=== PATIENT | female | born 2000 | race Caucasian/White ===

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

== ENCOUNTER 2021-03-23 19:27 | Inpatient (IN) ==
[2021-03-23] MEDS ORDERED: OXYTOCIN 30 UNITS/500 ML BAG IV PRN ×2 (20:04→20:05)
--- NOTE | 2021-03-23 20:44 | History & Physical Report ---
Date of Service March 23, 2021 Assessment & Plan (1) Supervision of normal first : Plan: 21-year-old at 39 weeks 0 days gestational age presents for induction of labor. Mcneal bulb was placed and patient ruptured during placement. Will start oxytocin per regular protocol. GBS negative. Vitals normal. otherwise uncomplicated. Admission and Anticipated Discharge Date Admission Date: March 23, 2021 History of Present Illness Primary Care Provider: Fern Echevarria DO Daniels is a 21-year-old the currently at 39 weeks 0 days gestational age. Patient presents for Mcneal placement for induction of labor tomorrow. Patient's water was instantly ruptured during fully placement. Discussed recommendation that she stay to start induction this evening which patient was agreeable to. Allergies Allergy/AdvReac Type Severity Reaction Status Date / Time nickel Allergy Unknown unknown Verified 03/23/21 13:27 Patient History Medical History (Updated 11/11/20 @ 11:39 by Shnael Guzman MD, FACOG) Mitral valve prolapse Surgical History (Updated 08/06/20 @ 13:16 by June Zarate) No history of previous surgery Family History (Updated 08/06/20 @ 13:16 by June Zarate) Grandmother (Maternal) Mitral valve prolapse Denies family history of Ovarian cancer Breast cancer Colorectal cancer Social History (Updated 08/06/20 @ 13:17 by June Zarate) Smoking Status: Never smoker Hx Alcohol Use: No Hx Substance Use: No Preferred Language: Bulgarian marital status: Single marital status details: dago Edmondsn (24) [phone] Current Living Situation: Other Current Living Situation Comment: lives with sister, dog current occupational status: employed 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
[2021-03-23 20:48] LABS: Hematocrit (blood only) 35.4 % (37-47); Mean Corpuscular Hemoglobin 30.2 pg (25-34); Mean Corpuscular Hgb Conc 33.9 g/dL (32-36); Mean Corpuscular Volume 89.2 fL (80-100); Mean Platelet Volume 10.4 fL (7.4-10.4); Platelet Count 287 K/uL (130-400); RDW Coefficient of Variation 13.7 % (11.5-14.5); RDW Standard Deviation 44.7 fL (36.4-46.3); Red Blood Count 3.97 M/uL (4.2-5.4); White Blood Count 10.66 K/uL (4.8-10.8)
[2021-03-23] MEDS: LACTATED RINGER'S 1,000 ML IV PRN (22:30)
[2021-03-24] MEDS ORDERED: fentaNYL citrate 100 MCG/2 ML VIAL ONE ×2 (01:43→10:13)
[2021-03-24] MEDS ORDERED: SODIUM CHLORIDE 0.9% INJ 10 ML VIAL ONE (01:43)
[2021-03-24] MEDS ORDERED: ePHEDrine sulfate 50 MG/ML AMP ONE ×2 (01:43→10:13)
[2021-03-24] MEDS ORDERED: BUPIVACAINE 0.25% 30 ML VIAL ONE (01:43)
[2021-03-24] MEDS ORDERED: fentaNYL 2MCG/ML ROPIVACAINE 1.25MG/ML 100 ML BAG EPI ONE (01:44)
[2021-03-24] MEDS ORDERED: diphenhydrAMINE 50 MG/ML VIAL IV PRN ×2 (02:11→10:56)
[2021-03-24] MEDS ORDERED: NALOXONE HCL 0.4 MG/1 ML VIAL/CARP IV PRN (02:11)
[2021-03-24] MEDS ORDERED: fentaNYL 2MCG/ML ROPIVACAINE 1.25MG/ML 100 ML BAG EPI PRN (02:11)
[2021-03-24] MEDS ORDERED: NALBUPHINE HCL INJ 10 MG/ML AMP IV PRN (02:11)
[2021-03-24] MEDS ORDERED: NALOXONE HCL 1 MG in SODIUM CHLORIDE 0.9% 1000ML 1,000 ML IV PRN (02:11)
[2021-03-24] MEDS ORDERED: ePHEDrine sulfate 50 MG/ML AMP IV PRN (02:11)
[2021-03-24] MEDS ORDERED: ONDANSETRON INJ 2 MG/ML 2 ML VIAL IV PRN ×2 (02:11→10:56)
--- NOTE | 2021-03-24 02:14 | Anesthesiology Consultation ---
Date of Service March 24, 2021 Assessment & Plan Chart Review Chart Review: Patient NOT seen in Pre Admission Testing and Acceptable Risk for Labor Epidural Consults Requested none ASA ASA2 Proposed Anesthesia Anesthesia Type: Labor Epidural and CSE Risk / Benefits Reviewed With: PT / POA / Parent / Guardian, Accepts Plan and Informed Consent Obtained History Height/Weight Height: 5 ft 3 in Weight: 169 kg Allergies Allergy/AdvReac Type Severity Reaction Status Date / Time nickel Allergy Unknown unknown Verified 03/23/21 13:27 Medications Active Medications Generic Name Dose Route Start Last Admin Trade Name Freq PRN Reason Stop Dose Admin Oxytocin 30 units in 500 mls @ 8 mls/hr 03/23/21 20:05 03/24/21 01:03 Pitocin IV 03/25/21 20:04 0.48 units/hr .Q24H PRN 8 mls/hr Labor Induction/Augmentation Titration Protocol 0.48 UNITS/HR Lactated Ringer's 1,000 mls @ 125 mls/hr 03/23/21 20:04 03/23/21 22:30 Lr IV 03/25/21 20:03 125 mls/hr .Q8H PRN Administration L&D Protocol Protocol NPO Date Last Intake of Fluids: 03/24/21 Time Last Intake of Fluids: 01:00 Date Last Intake of Solids: 03/23/21 Time Last Intake of Solids: 18:00 Past Medical History Medical History Mitral valve prolapse Exercise / Class Metabolic Activity II 4-5 Yardwork/Stairs/Walk up hill Past Family History Family History Grandmother (Maternal) Mitral valve prolapse Denies family history of Ovarian cancer Breast cancer Colorectal cancer Past Surgical History Surgical History No history of previous surgery Past Anesthesia History No Hx of Anesthesia Complications and No Family Hx of Anesthesia Complications History of PONV No Hx of PONV and No Hx of Motion Sickness Social History Smoking Status: Never smoker Hx Alcohol Use: No Hx Substance Use: No Review of Systems no chest pain or sob Physical Exam Vital Signs Last Vital Signs Temp 36.6 C 03/24/21 00:01 Pulse 83 03/24/21 02:08 Resp 18 03/24/21 00:01 BP 130/81 03/24/21 01:36 Pulse Ox 100 03/24/21 02:08 ENMT Mouth: no TMJ abnormality Thyromental Distance: > or= 3.5 Finger Breadths Mallampati Class: II Neck normal visual inspection Respiratory normal respiratory effort Auscultation: lungs clear to auscultation bilaterally Cardiovascular Rate/Rhythm: regular rate and regular rhythm Musculoskeletal Spine: normal cervical ROM Neurologic moves all extremities Psychiatric Orientation: alert and oriented x 3 Testing Laboratory Results 03/23/21 20:35
[2021-03-24] MEDS: LACTATED RINGER'S 1,000 ML IV PRN ×3 (02:16→09:38)
--- NOTE | 2021-03-24 06:46 | Labor Progress Brief Note ---
Date of Service March 24, 2021 Subjective Reason For Note: Routine Evaluation and Monitor Concern Presented to evaluate for recurrent decels late vs early. Assessment & Plan (1) Supervision of normal first : Plan: 21yo at 39.0 weeks GA. eIOL 1. Fetus: Current cat 1. Was cat 2 prior to IUPC placement however variability has improved and occasional decels at present (mix of late and early). Will hold off restarting Pitocin until a well established Cat 1 tracing is noted. 2. Labor: currently 5cm unchanged since 3am. However Pitocin has been off for significant portions of time since then and was making good progress prior. 3. Vitals: WNL Admission and Anticipated Discharge Date Admission Date: March 23, 2021 Physical Exam Genitourinary: Manual OB Exam: + cervical dilation 5 cm, + cervical effacement 80%, + station -2 and + amniotic fluid clear OB Exam Monitor Tracing: + external FHT monitor used, + intra-uterine pressure catheter used, + category I and + normal FHT variability; no early decelerations present, no late decelerations present and no variable decelerations IUPC placed. Results & Data ([facility]) Vital Signs (Past 12 Hours) Vital Signs Temp Pulse Resp BP Pulse Ox 03/24/21 06:38 37.4 C 134 H 18 98 03/24/21 06:33 106 H 99 03/24/21 06:30 101 H 92/50 L 03/24/21 06:28 92 H 96 03/24/21 06:23 81 96 03/24/21 06:18 88 97 03/24/21 06:15 100 H 99/57 L 03/24/21 06:13 87 96 03/24/21 06:08 88 96 03/24/21 06:03 87 96 03/24/21 06:00 91 H 101/58 L 03/24/21 05:58 80 97 03/24/21 05:53 80 99 03/24/21 05:48 74 99 03/24/21 05:47 85 104/55 L 03/24/21 05:43 83 100 03/24/21 05:38 79 99 03/24/21 05:33 73 99 03/24/21 05:30 75 105/56 L 03/24/21 05:28 70 100 03/24/21 05:23 103 H 99 03/24/21 05:18 85 98 03/24/21 05:16 100 H 125/73 03/24/21 05:13 101 H 99 03/24/21 05:10 18 03/24/21 05:08 93 H 96 03/24/21 05:03 67 97 03/24/21 05:00 91 H 108/67 03/24/21 04:58 85 95 03/24/21 04:53 74 97 03/24/21 04:48 105 H 94 03/24/21 04:47 100 H 113/74 03/24/21 04:43 106 H 98 03/24/21 04:38 73 97 03/24/21 04:33 37.2 C 119 H 18 98 03/24/21 04:32 107 H 120/62 03/24/21 04:31 100 H 92 03/24/21 04:30 18 03/24/21 04:28 94 H 98 03/24/21 04:26 93 H 90 03/24/21 04:23 97 H 97 03/24/21 04:18 72 97 03/24/21 04:15 88 102/61 03/24/21 04:13 79 97 03/24/21 04:08 86 98 03/24/21 04:03 93 H 97 03/24/21 04:02 75 107/64 03/24/21 03:58 82 98 03/24/21 03:53 96 H 98 03/24/21 03:48 81 97 03/24/21 03:47 105 H 119/67 93 03/24/21 03:43 84 97 03/24/21 03:38 94 H 97 03/24/21 03:33 100 H 98 03/24/21 03:31 69 107/62 03/24/21 03:28 101 H 97 03/24/21 03:23 105 H 96 03/24/21 03:18 96 H 97 03/24/21 03:16 81 112/62 03/24/21 03:13 94 H 97 03/24/21 03:08 84 96 03/24/21 03:03 103 H 97 03/24/21 02:59 83 109/59 L 03/24/21 02:58 76 96 03/24/21 02:57 88 110/56 L 03/24/21 02:55 106 H 123/67 03/24/21 02:53 86 132/64 97 03/24/21 02:51 78 122/65 03/24/21 02:49 74 116/61 03/24/21 02:48 85 97 03/24/21 02:47 102 H 124/68 03/24/21 02:45 18 03/24/21 02:43 115 H 99 03/24/21 02:40 117 H 18 118/53 L 03/24/21 02:38 122 H 98 03/24/21 02:37 129 H 133/74 03/24/21 02:36 77 126/82 03/24/21 02:35 97 H 18 122/76 03/24/21 02:33 98 H 120/69 95 03/24/21 02:31 91 H 125/80 03/24/21 02:30 18 03/24/21 02:29 100 H 134/75 03/24/21 02:28 116 H 97 03/24/21 02:27 103 H 135/80 03/24/21 02:25 18 03/24/21 02:24 36.6 C 03/24/21 02:23 90 98 03/24/21 02:20 18 03/24/21 02:18 114 H 96 03/24/21 02:13 82 98 03/24/21 02:08 83 100 03/24/21 02:03 75 99 03/24/21 01:58 77 99 03/24/21 01:53 83 99 03/24/21 01:36 86 130/81 03/24/21 00:37 77 101/55 L 03/24/21 00:01 36.6 C 18 03/23/21 23:45 80 117/69 03/23/21 23:36 78 126/74 03/23/21 22:01 36.8 C 18 03/23/21 20:00 37.0 C 18 03/23/21 19:40 37.0 C 18 03/23/21 19:34 115 H 125/80 Coding Level of Care Code None Diagnoses Supervision of normal first Z34.00
--- NOTE | 2021-03-24 07:46 | Labor Progress Brief Note ---
Date of Service March 24, 2021 Subjective comfortable with epidural. tried Assessment & Plan (1) Encounter for induction of labor: Plan: Fetus overall reassuring with occasional late responsive to position change. U nfortunately has not made any change in several hours. Contractions not adequate. May not be able to add back pitocin as at times, baby is not tolerating her own contractions. Explained the situation to the patient and her so who express understanding of the situation. Currently fetus is category one. Admission and Anticipated Discharge Date Admission Date: March 23, 2021 Physical Exam Physical Exam: cx--/-[address] toco--q2-5min, not adequate efm--130s with mod variabiltiy, small accels, occasional late decel responsive to position change Results & Data ([facility]) Vital Signs (Past 12 Hours) Vital Signs Temp Pulse Resp BP Pulse Ox 03/24/21 07:38 90 96 03/24/21 07:33 91 H 98 03/24/21 07:31 73 118/69 03/24/21 07:28 94 H 98 03/24/21 07:23 117 H 96 03/24/21 07:18 117 H 95 03/24/21 07:16 120 H 114/60 03/24/21 07:13 86 97 03/24/21 07:12 37.5 C 124 H 18 03/24/21 07:08 71 97 03/24/21 07:03 117 H 97 03/24/21 07:01 71 129/69 03/24/21 06:58 83 97 03/24/21 06:53 93 H 98 03/24/21 06:48 134 H 97 03/24/21 06:45 123 H 100/59 L 03/24/21 06:43 91 H 97 03/24/21 06:38 37.4 C 134 H 18 98 03/24/21 06:33 106 H 99 03/24/21 06:30 101 H 92/50 L 03/24/21 06:28 92 H 96 03/24/21 06:23 81 96 03/24/21 06:18 88 97 03/24/21 06:15 100 H 99/57 L 03/24/21 06:13 87 96 03/24/21 06:08 88 96 03/24/21 06:03 87 96 03/24/21 06:00 91 H 101/58 L 03/24/21 05:58 80 97 03/24/21 05:53 80 99 03/24/21 05:48 74 99 03/24/21 05:47 85 104/55 L 03/24/21 05:43 83 100 03/24/21 05:38 79 99 03/24/21 05:33 73 99 03/24/21 05:30 75 105/56 L 03/24/21 05:28 70 100 03/24/21 05:23 103 H 99 03/24/21 05:18 85 98 03/24/21 05:16 100 H 125/73 03/24/21 05:13 101 H 99 03/24/21 05:10 18 03/24/21 05:08 93 H 96 03/24/21 05:03 67 97 03/24/21 05:00 91 H 108/67 03/24/21 04:58 85 95 03/24/21 04:53 74 97 03/24/21 04:48 105 H 94 03/24/21 04:47 100 H 113/74 03/24/21 04:43 106 H 98 03/24/21 04:38 73 97 03/24/21 04:33 37.2 C 119 H 18 98 03/24/21 04:32 107 H 120/62 03/24/21 04:31 100 H 92 03/24/21 04:30 18 03/24/21 04:28 94 H 98 03/24/21 04:26 93 H 90 03/24/21 04:23 97 H 97 03/24/21 04:18 72 97 03/24/21 04:15 88 102/61 03/24/21 04:13 79 97 03/24/21 04:08 86 98 03/24/21 04:03 93 H 97 03/24/21 04:02 75 107/64 03/24/21 03:58 82 98 03/24/21 03:53 96 H 98 03/24/21 03:48 81 97 03/24/21 03:47 105 H 119/67 93 03/24/21 03:43 84 97 03/24/21 03:38 94 H 97 03/24/21 03:33 100 H 98 03/24/21 03:31 69 107/62 03/24/21 03:28 101 H 97 03/24/21 03:23 105 H 96 03/24/21 03:18 96 H 97 03/24/21 03:16 81 112/62 03/24/21 03:13 94 H 97 03/24/21 03:08 84 96 03/24/21 03:03 103 H 97 03/24/21 02:59 83 109/59 L 03/24/21 02:58 76 96 03/24/21 02:57 88 110/56 L 03/24/21 02:55 106 H 123/67 03/24/21 02:53 86 132/64 97 03/24/21 02:51 78 122/65 03/24/21 02:49 74 116/61 03/24/21 02:48 85 97 03/24/21 02:47 102 H 124/68 03/24/21 02:45 18 03/24/21 02:43 115 H 99 03/24/21 02:40 117 H 18 118/53 L 03/24/21 02:38 122 H 98 03/24/21 02:37 129 H 133/74 03/24/21 02:36 77 126/82 03/24/21 02:35 97 H 18 122/76 03/24/21 02:33 98 H 120/69 95 03/24/21 02:31 91 H 125/80 03/24/21 02:30 18 03/24/21 02:29 100 H 134/75 03/24/21 02:28 116 H 97 03/24/21 02:27 103 H 135/80 03/24/21 02:25 18 03/24/21 02:24 36.6 C 03/24/21 02:23 90 98 03/24/21 02:20 18 03/24/21 02:18 114 H 96 03/24/21 02:13 82 98 03/24/21 02:08 83 100 03/24/21 02:03 75 99 03/24/21 01:58 77 99 03/24/21 01:53 83 99 03/24/21 01:36 86 130/81 03/24/21 00:37 77 101/55 L 03/24/21 00:01 36.6 C 18 03/23/21 23:45 80 117/69 03/23/21 23:36 78 126/74 03/23/21 22:01 36.8 C 18 03/23/21 20:00 37.0 C 18 Coding Level of Care Code None Diagnoses Encounter for induction of labor Z34.90
--- NOTE | 2021-03-24 09:11 | Labor Progress Brief Note ---
Date of Service March 24, 2021 Subjective comfortable. Pit off for some time. contractions have spaced to q4-5 min, about 25mvu each, not close to adequate. When she has a "better" contraction, having variable with contractions. No longer having lates. low grade temp noted. Assessment & Plan (1) Encounter for induction of labor: (2) Non-reassuring electronic monitoring tracing: Plan: with pit off and contractions spaced, mostly category one. variable with some more strong contractions. Discussed could give another trial of pitocin, but I suspect the same outcome of nrfht given that even with some contractions that are spontaneous, she is having variables. However, certainly a viable option. Also offered to move directly to c/s. Discussed the r/b/se of both. She and fob have decided to proceed to c/s. Consent reviewed and signed. ruby and sumit for antibiotics. fetus overall reassuring. Admission and Anticipated Discharge Date Admission Date: March 23, 2021 Physical Exam Physical Exam: cx--deferred toco--q4-6 efm--130s wtih mod variability, accels to 150s, variables with some contractions. Results & Data ([facility]) Vital Signs (Past 12 Hours) Vital Signs Temp Pulse Resp BP Pulse Ox 03/24/21 09:04 37.5 C 18 03/24/21 09:03 105 H 97 03/24/21 09:01 111 H 132/77 03/24/21 08:58 111 H 97 03/24/21 08:53 99 H 100 03/24/21 08:48 108 H 97 03/24/21 08:43 114 H 98 03/24/21 08:38 108 H 99 03/24/21 08:33 89 97 03/24/21 08:30 102 H 114/57 L 03/24/21 08:28 87 97 03/24/21 08:23 77 97 03/24/21 08:18 99 H 97 03/24/21 08:16 83 118/62 03/24/21 08:13 88 97 03/24/21 08:08 90 97 03/24/21 08:03 135 H 97 03/24/21 08:01 134 H 108/58 L 03/24/21 07:58 102 H 98 03/24/21 07:53 89 96 03/24/21 07:48 96 H 97 03/24/21 07:45 86 122/69 03/24/21 07:43 92 H 97 03/24/21 07:38 90 96 03/24/21 07:33 91 H 98 03/24/21 07:31 73 118/69 03/24/21 07:28 94 H 98 03/24/21 07:23 117 H 96 03/24/21 07:18 117 H 95 03/24/21 07:16 120 H 114/60 03/24/21 07:13 86 97 03/24/21 07:12 37.5 C 124 H 18 03/24/21 07:08 71 97 03/24/21 07:03 117 H 97 03/24/21 07:01 71 129/69 03/24/21 06:58 83 97 03/24/21 06:53 93 H 98 03/24/21 06:48 134 H 97 03/24/21 06:45 123 H 100/59 L 03/24/21 06:43 91 H 97 03/24/21 06:38 37.4 C 134 H 18 98 03/24/21 06:33 106 H 99 03/24/21 06:30 101 H 92/50 L 03/24/21 06:28 92 H 96 03/24/21 06:23 81 96 03/24/21 06:18 88 97 03/24/21 06:15 100 H 99/57 L 03/24/21 06:13 87 96 03/24/21 06:08 88 96 03/24/21 06:03 87 96 03/24/21 06:00 91 H 101/58 L 03/24/21 05:58 80 97 03/24/21 05:53 80 99 03/24/21 05:48 74 99 03/24/21 05:47 85 104/55 L 03/24/21 05:43 83 100 03/24/21 05:38 79 99 03/24/21 05:33 73 99 03/24/21 05:30 75 105/56 L 03/24/21 05:28 70 100 03/24/21 05:23 103 H 99 03/24/21 05:18 85 98 03/24/21 05:16 100 H 125/73 03/24/21 05:13 101 H 99 03/24/21 05:10 18 01/06/22 05:08 93 H 96 03/24/21 05:03 67 97 03/24/21 05:00 91 H 108/67 03/24/21 04:58 85 95 03/24/21 04:53 74 97 03/24/21 04:48 105 H 94 03/24/21 04:47 100 H 113/74 03/24/21 04:43 106 H 98 03/24/21 04:38 73 97 03/24/21 04:33 37.2 C 119 H 18 98 03/24/21 04:32 107 H 120/62 03/24/21 04:31 100 H 92 03/24/21 04:30 18 03/24/21 04:28 94 H 98 03/24/21 04:26 93 H 90 03/24/21 04:23 97 H 97 03/24/21 04:18 72 97 03/24/21 04:15 88 102/61 03/24/21 04:13 79 97 03/24/21 04:08 86 98 03/24/21 04:03 93 H 97 03/24/21 04:02 75 107/64 03/24/21 03:58 82 98 03/24/21 03:53 96 H 98 03/24/21 03:48 81 97 03/24/21 03:47 105 H 119/67 93 03/24/21 03:43 84 97 03/24/21 03:38 94 H 97 03/24/21 03:33 100 H 98 03/24/21 03:31 69 107/62 03/24/21 03:28 101 H 97 03/24/21 03:23 105 H 96 03/24/21 03:18 96 H 97 03/24/21 03:16 81 112/62 03/24/21 03:13 94 H 97 03/24/21 03:08 84 96 03/24/21 03:03 103 H 97 03/24/21 02:59 83 109/59 L 03/24/21 02:58 76 96 03/24/21 02:57 88 110/56 L 03/24/21 02:55 106 H 123/67 03/24/21 02:53 86 132/64 97 03/24/21 02:51 78 122/65 03/24/21 02:49 74 116/61 03/24/21 02:48 85 97 03/24/21 02:47 102 H 124/68 03/24/21 02:45 18 03/24/21 02:43 115 H 99 03/24/21 02:40 117 H 18 118/53 L 03/24/21 02:38 122 H 98 03/24/21 02:37 129 H 133/74 03/24/21 02:36 77 126/82 03/24/21 02:35 97 H 18 122/76 03/24/21 02:33 98 H 120/69 95 03/24/21 02:31 91 H 125/80 03/24/21 02:30 18 03/24/21 02:29 100 H 134/75 03/24/21 02:28 116 H 97 03/24/21 02:27 103 H 135/80 03/24/21 02:25 18 03/24/21 02:24 36.6 C 03/24/21 02:23 90 98 03/24/21 02:20 18 03/24/21 02:18 114 H 96 03/24/21 02:13 82 98 03/24/21 02:08 83 100 03/24/21 02:03 75 99 03/24/21 01:58 77 99 03/24/21 01:53 83 99 03/24/21 01:36 86 130/81 03/24/21 00:37 77 101/55 L 03/24/21 00:01 36.6 C 18 03/23/21 23:45 80 117/69 03/23/21 23:36 78 126/74 03/23/21 22:01 36.8 C 18 Coding Level of Care Code None Diagnoses Encounter for induction of labor Z34.90 Non-reassuring electronic monitoring tracing O36.8390
[2021-03-24] MEDS ORDERED: CITRIC ACID/SODIUM CITRATE 15 ML UDC ONE (09:14)
[2021-03-24] MEDS ORDERED: MoRPHine SULFATE PF 1 MG/ML 10 ML AMP/VIAL ONE (09:15)
[2021-03-24] MEDS ORDERED: LACTATED RINGER'S 1,000 ML IV SCH ×2 (09:15→11:00)
[2021-03-24] MEDS ORDERED: AZITHROMYCIN 500 MG in DEXTROSE 5% 250 ML IV STA (09:30)
[2021-03-24] MEDS ORDERED: OXYTOCIN 10 UNITS/ML 10ML VIAL ONE (10:12)
[2021-03-24] MEDS ORDERED: ONDANSETRON INJ 2 MG/ML 2 ML VIAL ONE (10:18)
--- NOTE | 2021-03-24 10:38 | Operative Report ---
PG Post Operative Report Pre & Post Diagnosis Operation Date: 03/24/21 09:00 <No data on this case meets the specified criteria> Pre-op--iup at term nrfht post-op--same I identified the patient and participated in the time-out.: Yes Procedure Operation Date: 03/24/21 09:00 Actual Procedures p primary low transverse Section in LD Live Male Child @ 1010am - Annelise Danielle MD, FACOG Surgeon Annelise Danielle MD, FACOG Level Vial Inspector stanislaw Swain RN Estimated Blood Loss 600 Findings Consistent with Post-Op Diagnosis viable male , cephalic, clear fluid, short cord, nl uterus/tubes, ovs bilaterally Fluids ivf--600, uop--75 cc Specimens none Drains alfaro Anesthesia Type L&D Only Epidural Exists Complications none Disposition Accompanied Patient To Recovery: Yes Disposition: L&D Indications 21 with iup at 39 weeks. Elective induction. srom with placement of balloon. Progressed to 5cm with inadequate contractions and nrfht Description of Procedure The patient was taken to the operating room where she was identified verbally and by bracelet. She was seated on the operating table where her epidural anesthetic was bolused by anesthesia. She was then placed in the supine position with a leftward tilt. A Alfaro catheter had been placed sterilely. the patient was prepped and draped in a normal standard fashion. the anesthetic was tested and found to be adequate. A time-out was held, identifying correct patient, procedure, positioning and preoperative antibiotics. There were no concerns. A Pfannenstiel skin incision was made with a knife and taken down to the underlying layer of fascia with the knife and Bovie electrocautery. Bleeding was attended to with the Bovie. The fascia was incised in the midline with the knife and taken out laterally with scissors. The superior edge of the fascial incision was grasped, elevated and the underlying layer of rectus muscle was taken off bluntly and with scissors. In a similar fashion, the inferior edge of the fascial incision was grasped, elevated and the underlying layer of rectus muscle was taken off bluntly and with scissors. The muscles were bluntly in the midline. The peritoneum was entered bluntly. The incision was then stretched. The bladder blade was placed. The vesicouterine peritoneum was identified, entered with scissors and taken out laterally with scissors. The bladder flap was created digitally A hysterotomy incision was scored with a knife and the incision was stretched superiorly and inferiorly with the stand up forklift operator's fingers. The operators hand was placed into the incision and the head was delivered atraumatically. No nuchal cord, but cord quite short. The nose and mouth were bulb suctioned. the rest of the was then delivered without difficulty. The nose and mouth were again bulb suctioned. The cord was clamped and cut and the was then handed off to the awaiting systems test analyst for drying and attention. Cord blood was obtained. The placenta was Manually extracted. The uterus was exteriorized and cleared of all clot and debris with moistened laparotomy sponges. The hysterotomy incision was repaired in two layers, the first in a running locked layer, the second in an imbricating layer. Hemostasis was noted to be good. Posterior cul-de-sac was irrigated and cleared of all clot and debris. The hysterotomy incision was again inspected and found to be hemostatic. the uterus was reinteriorized. Hysterotomy incision was again inspected and found to be hemostatic. Rectus muscles were reapproximated with several interrupted stitches of 0 Vicryl. The fascia was then reapproximated with 0 Vicryl starting at the edges and meeting in the midline. The subcuticular tissues were copiously irrigated and bleeding was attended to with cautery. The skin was then closed with 4-0 Vicryl in a subcuticular fashion. All sponge , lap and needle counts correct x 2 and the patient taken to recovery in stable condition. I attest to the content of the Intraoperative Record and any orders documented therein. Any exceptions are noted below.
[2021-03-24] MEDS ORDERED: SENNA 8.6 MG TAB PO PRN (10:56)
[2021-03-24] MEDS ORDERED: HYDROCORTISONE ACETATE 25 MG SUPP PR PRN (10:56)
[2021-03-24] MEDS ORDERED: MAGNESIUM HYDROXIDE SUSP 30 ML UDC PO PRN (10:56)
[2021-03-24] MEDS ORDERED: BENZOCAINE 20% AER SPR 82.5 GM CAN EXT PRN (10:56)
[2021-03-24] MEDS ORDERED: DIPHTHERIA/TETANUS/PERTUSSIS 0.5 ML SYR/VIAL IM ONE (10:56)
[2021-03-24] MEDS ORDERED: SUPERCREAM 0.870% 15 GM JAR EXT PRN (10:56)
[2021-03-24] MEDS ORDERED: MEPERIDINE HCL 50 MG/ML CARP IV PRN (10:56)
[2021-03-24] MEDS ORDERED: diphenhydrAMINE Capsule 25 MG CAP PO PRN (10:56)
[2021-03-24] MEDS ORDERED: PROMETHAZINE HCL 25 MG in SODIUM CHLORIDE 0.9% 50 ML IV PRN (10:56)
--- NOTE | 2021-03-24 10:56 | Anesthesia Procedure Note ---
Date of Service March 24, 2021 Anesthesia Post Epidural Note Vital Signs Vital Signs: Temp Pulse Resp BP Pulse Ox 37.5 C 107 H 18 107/54 L 98 03/24/21 09:04 03/24/21 10:53 03/24/21 09:04 03/24/21 10:49 03/24/21 10:53 Notes Mental Status: alert / awake / arousable Nausea / Vomiting: adequately controlled Pain: adequately controlled Airway Patency, RR, SpO2: stable & adequate BP & HR: stable & adequate Hydration State: stable & adequate Neuraxial Anesthesia: was administered and sensory block is resolving Anesthetic Complications: no major complications apparent and Pt Satisfied with anesthetic care Epidural: Removed without complications and With tip intact
[2021-03-24] MEDS: OXYTOCIN 20 UNITS in LACTATED RINGER'S 1,000 ML IV SCH ×2 (12:05→21:07)
--- NOTE | 2021-03-24 13:51 | Anesthesiology Progress Note ---
Date of Service March 24, 2021 Anesthesia Post Procedure Vital Signs Vital Signs: Temp Pulse Resp BP Pulse Ox 03/24/21 12:53 97 H 129/64 03/24/21 12:48 36.9 C 99 H 18 98 03/24/21 12:43 103 H 97 03/24/21 12:39 101 H 124/65 03/24/21 12:38 100 H 98 03/24/21 12:33 97 H 97 03/24/21 12:29 98 H 121/61 03/24/21 12:28 102 H 97 03/24/21 12:27 106 H 93 03/24/21 12:23 87 98 03/24/21 12:19 90 16 117/59 L 03/24/21 12:18 93 H 96 03/24/21 12:13 95 H 95 03/24/21 12:12 92 H 94 03/24/21 12:09 88 117/62 03/24/21 12:08 93 H 96 03/24/21 12:03 96 H 98 03/24/21 11:59 94 H 113/70 03/24/21 11:58 93 H 98 03/24/21 11:53 89 97 03/24/21 11:49 101 H 113/58 L 03/24/21 11:48 37.4 C 91 H 18 99 03/24/21 11:43 88 96 03/24/21 11:39 88 112/59 L 03/24/21 11:38 87 18 97 03/24/21 11:33 90 97 03/24/21 11:29 93 H 109/59 L 03/24/21 11:28 93 H 18 97 03/24/21 11:23 105 H 97 03/24/21 11:19 93 H 108/56 L 03/24/21 11:18 96 H 18 98 03/24/21 11:13 108 H 98 03/24/21 11:10 101 H 122/63 03/24/21 11:08 94 H 18 98 03/24/21 11:03 107 H 98 03/24/21 10:59 111 H 112/51 L 03/24/21 10:58 111 H 18 96 03/24/21 10:53 107 H 98 03/24/21 10:49 111 H 107/54 L 03/24/21 10:48 37.3 C 115 H 18 99 01/06/22 09:45 106 H 118/69 03/24/21 09:43 113 H 97 03/24/21 09:38 131 H 99 03/24/21 09:33 134 H 98 03/24/21 09:30 125 H 120/76 03/24/21 09:28 120 H 98 03/24/21 09:23 105 H 98 03/24/21 09:18 133 H 98 03/24/21 09:15 120 H 121/72 03/24/21 09:13 112 H 98 03/24/21 09:08 111 H 98 03/24/21 09:04 37.5 C 18 03/24/21 09:03 105 H 97 03/24/21 09:01 111 H 132/77 03/24/21 08:58 111 H 97 03/24/21 08:53 99 H 100 03/24/21 08:48 108 H 97 03/24/21 08:43 114 H 98 03/24/21 08:38 108 H 99 03/24/21 08:33 89 97 03/24/21 08:30 102 H 114/57 L 03/24/21 08:28 87 97 03/24/21 08:23 77 97 03/24/21 08:18 99 H 97 03/24/21 08:16 83 118/62 03/24/21 08:13 88 97 03/24/21 08:08 90 97 03/24/21 08:03 135 H 97 03/24/21 08:01 134 H 108/58 L 03/24/21 07:58 102 H 98 03/24/21 07:53 89 96 03/24/21 07:48 96 H 97 03/24/21 07:45 86 122/69 03/24/21 07:43 92 H 97 03/24/21 07:38 90 96 03/24/21 07:33 91 H 98 03/24/21 07:31 73 118/69 03/24/21 07:28 94 H 98 03/24/21 07:23 117 H 96 03/24/21 07:18 117 H 95 03/24/21 07:16 120 H 114/60 03/24/21 07:13 86 97 03/24/21 07:12 37.5 C 124 H 18 03/24/21 07:08 71 97 01/06/22 07:03 117 H 97 03/24/21 07:01 71 129/69 03/24/21 06:58 83 97 03/24/21 06:53 93 H 98 03/24/21 06:48 134 H 97 03/24/21 06:45 123 H 100/59 L 03/24/21 06:43 91 H 97 03/24/21 06:38 37.4 C 134 H 18 98 03/24/21 06:33 106 H 99 03/24/21 06:30 101 H 92/50 L 03/24/21 06:28 92 H 96 03/24/21 06:23 81 96 03/24/21 06:18 88 97 03/24/21 06:15 100 H 99/57 L 03/24/21 06:13 87 96 03/24/21 06:08 88 96 03/24/21 06:03 87 96 03/24/21 06:00 91 H 101/58 L 03/24/21 05:58 80 97 03/24/21 05:53 80 99 03/24/21 05:48 74 99 03/24/21 05:47 85 104/55 L 03/24/21 05:43 83 100 03/24/21 05:38 79 99 03/24/21 05:33 73 99 03/24/21 05:30 75 105/56 L 03/24/21 05:28 70 100 03/24/21 05:23 103 H 99 03/24/21 05:18 85 98 03/24/21 05:16 100 H 125/73 03/24/21 05:13 101 H 99 03/24/21 05:10 18 03/24/21 05:08 93 H 96 03/24/21 05:03 67 97 03/24/21 05:00 91 H 108/67 03/24/21 04:58 85 95 03/24/21 04:53 74 97 03/24/21 04:48 105 H 94 03/24/21 04:47 100 H 113/74 03/24/21 04:43 106 H 98 03/24/21 04:38 73 97 03/24/21 04:33 37.2 C 119 H 18 98 03/24/21 04:32 107 H 120/62 03/24/21 04:31 100 H 92 01/06/22 04:30 18 03/24/21 04:28 94 H 98 03/24/21 04:26 93 H 90 03/24/21 04:23 97 H 97 03/24/21 04:18 72 97 03/24/21 04:15 88 102/61 03/24/21 04:13 79 97 03/24/21 04:08 86 98 03/24/21 04:03 93 H 97 03/24/21 04:02 75 107/64 03/24/21 03:58 82 98 03/24/21 03:53 96 H 98 03/24/21 03:48 81 97 03/24/21 03:47 105 H 119/67 93 03/24/21 03:43 84 97 03/24/21 03:38 94 H 97 03/24/21 03:33 100 H 98 03/24/21 03:31 69 107/62 03/24/21 03:28 101 H 97 03/24/21 03:23 105 H 96 03/24/21 03:18 96 H 97 03/24/21 03:16 81 112/62 03/24/21 03:13 94 H 97 03/24/21 03:08 84 96 03/24/21 03:03 103 H 97 03/24/21 02:59 83 109/59 L 03/24/21 02:58 76 96 03/24/21 02:57 88 110/56 L 03/24/21 02:55 106 H 123/67 03/24/21 02:53 86 132/64 97 03/24/21 02:51 78 122/65 03/24/21 02:49 74 116/61 03/24/21 02:48 85 97 03/24/21 02:47 102 H 124/68 03/24/21 02:45 18 03/24/21 02:43 115 H 99 03/24/21 02:40 117 H 18 118/53 L 03/24/21 02:38 122 H 98 03/24/21 02:37 129 H 133/74 03/24/21 02:36 77 126/82 03/24/21 02:35 97 H 18 122/76 03/24/21 02:33 98 H 120/69 95 03/24/21 02:31 91 H 125/80 03/24/21 02:30 18 03/24/21 02:29 100 H 134/75 03/24/21 02:28 116 H 97 03/24/21 02:27 103 H 135/80 03/24/21 02:25 18 03/24/21 02:24 36.6 C 03/24/21 02:23 90 98 03/24/21 02:20 18 03/24/21 02:18 114 H 96 03/24/21 02:13 82 98 03/24/21 02:08 83 100 03/24/21 02:03 75 99 03/24/21 01:58 77 99 03/24/21 01:53 83 99 03/24/21 01:36 86 130/81 03/24/21 00:37 77 101/55 L 03/24/21 00:01 36.6 C 18 03/23/21 23:45 80 117/69 03/23/21 23:36 78 126/74 03/23/21 22:01 36.8 C 18 03/23/21 20:00 37.0 C 18 03/23/21 19:40 37.0 C 18 03/23/21 19:34 115 H 125/80 Pain Intensity Lower Abdomen: Pain Intensity: 5 Transfer of Care Handoff Completed per policy Notes Mental Status: alert / awake / arousable and participated in evaluation Patient Amnestic to Procedure: Yes Nausea / Vomiting: adequately controlled Pain: adequately controlled Airway Patency, RR, SpO2: stable & adequate BP & HR: stable & adequate Hydration State: stable & adequate Anesthetic Complications: no major complications apparent
[2021-03-24] MEDS: SIMETHICONE 80 MG CHEW PO SCH ×3 (14:14→21:08)
[2021-03-24] MEDS: KETOROLAC 30 MG/ML VIAL IV PRN (14:15)
[2021-03-24] MEDS ORDERED: CARBOPROST TROMETHAMINE 250 MCG/ML AMPUL IM ONE (14:26)
[2021-03-24] MEDS: DOCUSATE SODIUM 100 MG CAP PO SCH (21:08)
[2021-03-25] MEDS: KETOROLAC 30 MG/ML VIAL IV PRN (02:06)
[2021-03-25] MEDS ORDERED: CITRIC ACID/SODIUM CITRATE 15 ML UDC PO SCH (06:00)
--- NOTE | 2021-03-25 07:21 | Obstetrical Progress Note ---
Date of Service <Avelina Lal MD - Last Filed: 03/25/21 07:22> March 25, 2021 Assessment & Plan <Avelina Lal MD - Last Filed: 03/25/21 07:22> (1) Encounter for care and examination after delivery: POD 1: stable, routine postoperative management * patient voiding, ambulating without difficulty * pain well controlled on analgesia * incision clean, dry, and intact; continue to monitor, change as needed. * IV Lactated Ringer's * bottle feeding * anticipate discharge tomorrow <Annelise Danielle MD, FACOG - Last Filed: 03/25/21 07:34> (1) Encounter for care and examination after delivery: Subjective <Avelina Lal MD - Last Filed: 03/25/21 07:22> Post Frances is a 21-year-old primigravida who is POD 1 following for nonreassuring FHTs at 39.1 WGA. She reports feeling well overall this morning. 2/10 pain well managed on analgesics. Voiding []. Tolerating meals overnight. + Passing gas. Has some persistent lochia with some improvement this morning. Currently bottle feeding. Review of Systems Denies fever, chills, sweats Denies shortness of breath, difficulty breathing, chest pain, palpitations, chest pressure. Denies breast pain. Denies dysuria. Denies headache or changes in vision. Physical Exam <Avelina Lal MD - Last Filed: 03/25/21 07:22> General: Alert, oriented. No acute distress. Cardiac: Regular rate and rhythm, no murmurs/rubs/gallops. Respiratory: Clear to auscultation bilaterally a/p, no wheezes/rales/rhonchi. No increased work of breathing. Symmetrical chest rise. No respiratory distress. Abdomen: Soft, nontender, nondistended. Bowel sounds present. Uterus: Uterine fundus firm, palpable at the umbilicus. Surgical scar clean and healing well. Lower Extremities: No lower extremity edema or swelling. No deep calf pain. Manisha's negative bilaterally. Results & Data ([facility]) <Avelina Lal MD - Last Filed: 03/25/21 07:22> Vital Signs (Past 12 Hours) Vital Signs Temp Pulse Resp BP Pulse Ox 03/25/21 03:20 37.4 C 88 18 110/68 95 03/25/21 02:30 16 88 L 03/25/21 01:00 16 92 03/25/21 00:08 16 92 03/24/21 23:30 36.6 C 98 H 16 122/81 94 03/24/21 22:20 16 93 03/24/21 21:10 16 94 03/24/21 20:25 16 95 03/24/21 19:20 37.1 C 94 H 16 111/73 94 <Annelise Danielle MD, FACOG - Last Filed: 03/25/21 07:34> Co-Signing Physician Notes Resident Physician Supervision Note: I interviewed and examined the patient. Discussed with Dr. Marie and agree with findings and plan as documented in the note. Any exceptions or clarifications are listed here: Doing well. Pain controlled. Tolerated diet. Routine pod 1. Required some supplemental oxygen overnight as desat to 87 with deep sleep. Off this am. Documented By: Annelise Danielle MD, FACOG Resident Activity Tracking <Avelina Lal MD - Last Filed: 03/25/21 07:22> Resident Involvement: Resident Care Provided Care Provided: OB Delivery
[2021-03-25 07:32] LABS: Basophils # (auto) 0.02 K/uL (0-0.2); Basophils % (auto) 0.1 %; Eosinophils # (auto) 0.03 K/uL (0-0.5); Eosinophils % (auto) 0.2 %; Hemoglobin 9.6 g/dL (12.0-16.0); Immature Granulocytes # (auto) 0.07 K/uL (0.00-0.02); Immature Granulocytes % (auto) 0.5 %; Lymphocytes # (auto) 1.55 K/uL (1.2-3.4); Lymphocytes % (auto) 10.4 %; Mean Corpuscular Hemoglobin 29.1 pg (25-34); Mean Corpuscular Volume 90.9 fL (80-100); Mean Platelet Volume 10.3 fL (7.4-10.4); Monocytes # (auto) 1.03 K/uL (0.11-0.59); Monocytes % (auto) 6.9 %; Neutrophils # (auto) 12.19 K/uL (1.4-6.5); Neutrophils % (auto) 81.9 %; Platelet Count 217 K/uL (130-400); RDW Coefficient of Variation 14.2 % (11.5-14.5); RDW Standard Deviation 46.6 fL (36.4-46.3); White Blood Count 14.89 K/uL (4.8-10.8)
[2021-03-25] MEDS: DOCUSATE SODIUM 100 MG CAP PO SCH ×2 (07:46→21:01)
[2021-03-25] MEDS: SIMETHICONE 80 MG CHEW PO SCH ×3 (07:46→21:01)
[2021-03-25] MEDS: IBUPROFEN 600 MG TAB PO PRN ×4 (07:47→23:39)
[2021-03-25] MEDS: PRENATAL VITAMIN 1 TAB PO SCH (07:47)
[2021-03-25] MEDS: oxyCODONE/ACETAMINOPHEN 5mg/325mg TAB PO PRN ×4 (07:47→23:39)
[2021-03-25] MEDS ORDERED: FERROUS SULFATE 325 MG TAB PO SCH (08:00)
[2021-03-25] MEDS ORDERED: bisacodyL 5 MG TABEC PO SCH (20:00)
[2021-03-26] MEDS: oxyCODONE/ACETAMINOPHEN 5mg/325mg TAB PO PRN ×3 (06:14→13:50)
[2021-03-26] MEDS: IBUPROFEN 600 MG TAB PO PRN ×3 (06:14→13:49)
[2021-03-26 06:52] LABS: Hematocrit (blood only) 29.9 % (37-47); Hemoglobin 9.4 g/dL (12.0-16.0)
--- NOTE | 2021-03-26 07:37 | Obstetrical Progress Note ---
Date of Service <Avelina Lal MD - Last Filed: 03/26/21 07:37> March 26, 2021 Assessment & Plan <Avelina Lal MD - Last Filed: 03/26/21 07:37> (1) Encounter for care and examination after delivery: POD 2: stable, routine postoperative management * patient voiding, ambulating without difficulty * pain well controlled on analgesia * incision clean, dry, and intact * IV Lactated Ringer's every 8 hours * bottle feeding * anticipate discharge today <Armida Doyle MD - Last Filed: 03/26/21 08:11> (1) Encounter for care and examination after delivery: Subjective <Avelina Lal MD - Last Filed: 03/26/21 07:37> Post Frances is a 21-year-old primigravida who is POD 2 following for nonreassuring FHTs at 39.1 WGA. She reports feeling better this morning. She reports some incisional pain with ambulation, for which she received Motrin at approximately 10 PM. Since then, 2/10 pain well managed on analgesics. Voiding +. Tolerating meals overnight and able to ambulate without assistance. Minimal lochia this morning. Currently bottle feeding. Review of Systems Denies fever, chills, sweats Denies shortness of breath, difficulty breathing, chest pain, palpitations, chest pressure. Denies breast pain. Denies dysuria. Denies headache or changes in vision. Physical Exam <Avelina Lal MD - Last Filed: 03/26/21 07:37> General: Alert, oriented. No acute distress. Cardiac: Regular rate and rhythm, no murmurs/rubs/gallops. Respiratory: Clear to auscultation bilaterally a/p, no wheezes/rales/rhonchi. No increased work of breathing. Symmetrical chest rise. No respiratory distress. Abdomen: Soft, nontender, nondistended. Bowel sounds present. Uterus: Uterine fundus firm, palpable 2 cm above the umbilicus. Surgical scar clean and healing well. Lower Extremities: No lower extremity edema or swelling. No deep calf pain. Manisha's negative bilaterally. Results & Data ([facility]) <Avelina Lal MD - Last Filed: 03/26/21 07:37> Vital Signs (Past 12 Hours) Vital Signs Temp Pulse Resp BP Pulse Ox 03/25/21 23:17 36.9 C 83 18 103/67 97 03/25/21 19:55 36.6 C 86 18 114/80 100 <Armida Doyle MD - Last Filed: 03/26/21 08:11> Co-Signing Physician Notes Resident Physician Supervision Note: I interviewed and examined the patient. Discussed with Dr. Marie and agree with findings and plan as documented in the note. Any exceptions or clarifications are listed here: [ ] Documented By: Armida Doyle MD, FACOG Resident Activity Tracking <Avelina Lal MD - Last Filed: 03/26/21 07:37> Resident Involvement: Resident Care Provided Care Provided: OB Delivery
[2021-03-26] MEDS: DOCUSATE SODIUM 100 MG CAP PO SCH (08:32)
[2021-03-26] MEDS: PRENATAL VITAMIN 1 TAB PO SCH (08:32)
[2021-03-26] MEDS: SIMETHICONE 80 MG CHEW PO SCH ×2 (08:33→13:07)
[2021-03-26] MEDS ORDERED: bisacodyL 10 MG SUPP PR PRN (10:56)
--- NOTE | 2021-03-28 15:54 | Discharge Summary (DS) ---
DATE OF ADMISSION: 03/23/2021 DATE OF DISCHARGE: 03/26/2021 ADMIT DIAGNOSES: 1. Intrauterine at 39 and 0/7th weeks. 2. Spontaneous rupture of membranes with placement of Mcneal catheter for elective induction. DISCHARGE DIAGNOSES: 1. Intrauterine at 39 and 0/7th weeks. 2. Spontaneous rupture of membranes with placement of Mcneal catheter for elective induction. 3. intolerance of labor. PROCEDURES: 1. Attempted to place a Mcneal bulb. 2. Pitocin augmentation. 3. Epidural. 4. IUPC. 5. Primary low transverse section. HISTORY: Frances is a 21-year-old white female, 1, para 0, who presented to labor and delivery at 39 and 0/7 weeks on the evening of 03/23. She had a Mcneal bulb placed for elective induction the following day. The patient's mother was leaving in 3 days and so she wanted to have the baby before her mother left. Unfortunately, on placement of the Mcneal bulb, the patient's water was ruptured and she stayed for induction. The has been essentially uncomplicated. For the rest of the patient's detailed history and physical, please see her dictated history and physical. On admission, her cervix was 1 cm dilated, 80% effaced, -2 station. heart tones were category 1 with normal variability, no decelerations present. ASSESSMENT: This is a 21-year-old 1, para 0, at 39 and 0/7th weeks for induction of labor. Mcneal bulb was placed and the patient ruptured during placement. HOSPITAL COURSE: The patient was started on oxytocin per protocol. She was GBS negative. She underwent an epidural anesthesia. Unfortunately, during the time overnight, multiple attempts at increasing the Pitocin needed to be stopped because of intolerance to adequate contractions. When I assumed care for the patient the following morning, Pitocin had been off for some time. She was checked and found to be 5, 90, and -2 and this was unchanged over several hours. An IUPC had been placed. heart tones were in the 130s with moderate variability, small accels. The fetus was responsive to position change, oxygen and turning off the Pitocin. Unfortunately, with turning off the Pitocin, the patient did not continue to contract, her contractions spaced and she certainly had an inadequate contraction pattern. This was discussed with the patient noting that since the baby had returned to a category 1 strip, it was very reassuring we could try the Pitocin again, but I was less than hopeful that we can get adequate contractions to cause cervical change given the baby's intolerance to labor. The patient was given the option of continued attempt at vaginal delivery versus proceeding with section, and she chose to proceed with section. The patient underwent a primary low transverse section without difficulty to deliver a viable male infant in cephalic presentation with clear fluid. There was a very short cord noted. Normal uterus, tubes and ovaries were noted bilaterally. Estimated blood loss for the procedure was 600 mL. The patient's postoperative course was uncomplicated. She tolerated a regular diet, voided after the removal of her Mcneal catheter, ambulated without difficulty, had her pain well controlled on oral analgesia. She was discharged to home on postoperative day 2 to return in 6 weeks for routine postoperative care. Job ID: [id number] [id number]
== END 2021-03-26 14:10 | disposition home or self-care (01) | DRG 788 ==
LOC: 4S1 19:27 → 4S2 03-24 13:05